=== PATIENT | female | born 1985 | race Caucasian/White ===

== ENCOUNTER 2017-02-22 11:17 | Emergency (ER) | payer OTHER, BC ==
[2017-02-22 11:30] VITALS: BP 116/58
[2017-02-22] MEDS ORDERED: Promethazine 25 MG/ML SDV IM ONE (11:56)
[2017-02-22] MEDS ORDERED: Ketorolac 30 MG/ML SDV IM ONE (11:56)
[2017-02-22] MEDS ORDERED: diphenhydrAMINE 50 MG/ML SDV IVPUSH ONE (11:58)
[2017-02-22] MEDS ORDERED: Sodium Chloride 0.9% 1,000 ML IV ONE (12:01)
--- NOTE | 2017-02-22 12:05 | EDM.PDOC ---
ED HPI GENERAL MEDICAL PROBLEM - General Chief Complaint: Headache Stated Complaint: SEVERE MIGRAINE Time Seen by Provider: 02/22/17 12:01 Source of Information: Reports: Patient - History of Present Illness INITIAL COMMENTS - FREE TEXT/NARRATIVE: 31 yo White female w/ PMHx. ( Migraine and Fibromylalgia) c/o Migraine Headache not responsive to Ibuprofen. Onset: Today Onset Date: 02/22/17 Onset Time: 08:00 Duration: Hour(s): Location: Reports: Head Quality: Reports: Ache Severity: Moderate Improves with: Reports: None Worsens with: Reports: Movement Associated Symptoms: Reports: Headaches Headache Pain Score (Numeric/FACES): 9 - Related Data Allergies Allergy/AdvReac Type Severity Reaction Status Date / Time amoxicillin Allergy UNKNOWN Verified 07/11/14 09:15 cephalexin Allergy UNKNOWN Verified 07/11/14 09:15 Sulfa (Sulfonamide Allergy UNKNOWN Verified 07/11/14 09:15 Antibiotics) Home Meds: Home Meds Amitriptyline HCl [Amitriptyline HCl] 50 mg PO BEDTIME 09/11/14 [History] Desogestrel-Ethinyl Estradiol [Apri 28 Day Tablet] 1 tab PO DAILY 09/11/14 [ History] Propranolol HCl 20 mg PO BID 09/11/14 [History] Past Medical History Cardiovascular History: Reports: Hypertension - Past Surgical History GI Surgical History: Reports: Hernia, Inguinal, Hernia Repair/Other Female Surgical History: Reports: Other (See Below) Other Female Surgeries/Procedures: repair of prolapsed uterus Social & Family History - Tobacco Use Smoking Status *Q: Never Smoker - Caffeine Use Caffeine Use: Reports: Coffee, Tea - Alcohol Use Days Per Week of Alcohol Use: 0 - Recreational Drug Use Recreational Drug Use: No - Living Situation & Occupation Living situation: Reports: , with Family Occupation: Employed ED ROS GENERAL - Review of Systems Review Of Systems: See Below Constitutional: Reports: No Symptoms HEENT: Reports: No Symptoms Respiratory: Reports: No Symptoms Cardiovascular: Reports: No Symptoms Endocrine: Reports: No Symptoms GI/Abdominal: Reports: No Symptoms : Reports: No Symptoms Musculoskeletal: Reports: No Symptoms Skin: Reports: No Symptoms Neurological: Reports: Headache Psychiatric: Reports: No Symptoms Hematologic/Lymphatic: Reports: No Symptoms Immunologic: Reports: No Symptoms - Physical Exam Exam: See Below Exam Limited By: No Limitations General Appearance: Alert, WD/WN, No Apparent Distress Eye Exam: Bilateral Eye: EOMI Ears: Normal External Exam Nose: Normal Inspection Throat/Mouth: Normal Inspection Head Exam: Atraumatic, Normocephalic Neck: Normal Inspection, Supple Respiratory/Chest: No Respiratory Distress Cardiovascular: Normal Peripheral Pulses GI/Abdominal: Normal Bowel Sounds Neuro Exam (Abbreviated): Alert, Oriented, CN II-XII Intact Back Exam: Normal Inspection Extremities: Normal Inspection, Normal Range of Motion Psychiatric: Normal Affect, Normal Mood Skin Exam: Warm Course - Vital Signs Last Recorded V/S: Last Vital Signs Temp 37.2 C 02/22/17 11:29 Pulse 76 02/22/17 11:29 Resp 16 02/22/17 11:29 BP 116/58 L 02/22/17 11:29 Pulse Ox 100 02/22/17 11:29 - Orders/Labs/Meds Meds: Medications Discontinued Medications Generic Name Dose Route Start Last Admin Trade Name Hubert PRN Reason Stop Dose Admin Diphenhydramine HCl 25 mg 02/22/17 11:58 02/22/17 12:20 Benadryl IVPUSH 02/22/17 11:59 25 mg ONETIME ONE Administration Sodium Chloride 1,000 mls @ 999 mls/hr 02/22/17 12:01 02/22/17 12:27 Normal Saline IV 02/22/17 13:01 999 mls/hr .BOLUS ONE Administration Ketorolac Tromethamine 60 mg 02/22/17 11:56 02/22/17 12:22 Toradol IM 02/22/17 11:57 60 mg ONETIME ONE Administration Promethazine HCl 12.5 mg 02/22/17 11:56 02/22/17 12:24 Phenergan IM 02/22/17 11:57 12.5 mg ONETIME ONE Administration Departure - Departure Time of Disposition: 13:14 Disposition: Home, Self-Care 01 Condition: Good Clinical Impression: Migraine - Discharge Information Instructions: Recurrent Migraine Headache, [id number] Forms: ED Department Discharge Additional Instructions: Rest Take your medication as prescribed only F/U w/ your PCP
== END 2017-02-22 13:28 | disposition home or self-care (01) ==
LOC: DL.ED 11:17
DX: G43.909 Migraine, unspecified, not intractable, without status migrainosus (principal); I10 Essential (primary) hypertension; Z98.890 Other specified postprocedural states; Z88.1 Allergy status to other antibiotic agents; Z88.2 Allergy status to sulfonamides
CPT/HCPCS: 96361; 96372; 96374; 99283; J1200; J1885; J2550; J7030

== ENCOUNTER 2020-05-25 12:08 | Emergency (ER) | payer OTHER, BC ==
[2020-05-25] MEDS ORDERED: Sodium Chloride 0.9% 1,000 ML IV ONE (13:51)
[2020-05-25] MEDS ORDERED: Ondansetron 4 MG/2 ML SDV IVPUSH ONE (13:51)
[2020-05-25] MEDS ORDERED: Ketorolac 30 MG/ML SDV IVPUSH ONE (13:51)
[2020-05-25] MEDS ORDERED: diphenhydrAMINE 50 MG/ML SDV IVPUSH ONE (13:51)
--- NOTE | 2020-05-25 13:57 | EDM.PDOC ---
<Janeth Booker - Last Filed: 05/25/20 15:34> ED HPI GENERAL MEDICAL PROBLEM - General Chief Complaint: Headache Stated Complaint: SEVERE MIGRAINE Time Seen by Provider: 05/25/20 13:40 Source of Information: Reports: Patient, RN, RN Notes Reviewed History Limitations: Reports: No Limitations - History of Present Illness INITIAL COMMENTS - FREE TEXT/NARRATIVE: 35 year old female with known history of migraines presents to ED with c/o migraine headache since yesterday. states she has taken her home regimen without any improvement. reports vomiting twice, reports photosensitivity. reports this as a typical migraine. states she gets them every 2 months or so, notes a correlation with fibromyalgia or neck pain flares. denies fever, chills, malaise, SOB, CP, or diarrhea. Onset Date: 05/24/20 - Related Data Allergies Allergy/AdvReac Type Severity Reaction Status Date / Time amoxicillin Allergy UNKNOWN Verified 07/11/14 09:15 cephalexin Allergy UNKNOWN Verified 07/11/14 09:15 Sulfa (Sulfonamide Allergy UNKNOWN Verified 07/11/14 09:15 Antibiotics) Home Meds: Home Meds Amitriptyline HCl 50 mg PO BEDTIME 09/11/14 [History] Desogestrel-Ethinyl Estradiol [Apri 28 Day Tablet] 1 tab PO DAILY 09/11/14 [History] Propranolol HCl 20 mg PO BID 09/11/14 [History] Past Medical History Cardiovascular History: Reports: Hypertension - Past Surgical History GI Surgical History: Reports: Hernia, Inguinal, Hernia Repair/Other Female Surgical History: Reports: Other (See Below) Other Female Surgeries/Procedures: repair of prolapsed uterus Social & Family History - Caffeine Use Caffeine Use: Reports: Coffee, Tea - Living Situation & Occupation Living situation: Reports: , with Family Occupation: Employed ED ROS GENERAL - Review of Systems Review Of Systems: Comprehensive ROS is negative, except as noted in HPI. - Physical Exam Exam: See Below Exam Limited By: No Limitations General Appearance: Alert, WD/WN, No Apparent Distress, Moderate Distress Eye Exam: Bilateral Eye: Other (photosensitivity) Nose: Normal Inspection Throat/Mouth: Normal Inspection, Normal Voice, No Airway Compromise Head Exam: Atraumatic, Normocephalic Neck: Normal Inspection, Full Range of Motion Respiratory/Chest: No Respiratory Distress, Lungs Clear, Normal Breath Sounds Cardiovascular: Normal Peripheral Pulses, No Murmur GI/Abdominal: Normal Bowel Sounds, Soft, Non-Tender, No Distention (Female) Exam: Deferred Rectal (Female) Exam: Deferred Neuro Exam (Abbreviated): Alert, Oriented, CN II-XII Intact, Normal Gait Back Exam: Normal Inspection, Full Range of Motion Extremities: Normal Inspection, Normal Range of Motion, Non-Tender, No Pedal Edema Psychiatric: Normal Affect, Normal Mood Skin Exam: Warm, Dry, Intact, Normal Color, No Rash Departure - Departure Time of Disposition: 15:34 Disposition: Home, Self-Care 01 Condition: Fair Clinical Impression: Migraine - Discharge Information *PRESCRIPTION DRUG MONITORING PROGRAM REVIEWED*: No *COPY OF PRESCRIPTION DRUG MONITORING REPORT IN PATIENT RASHEED: No Instructions: Migraine Headache Forms: ED Department Discharge Additional Instructions: Rest. Stay hydrated. May take tylenol PM this evening before bed. Return to ER if symptoms persist or worsen. Follow-up with your PCP. <Audrey Vazquez - Last Filed: 05/25/20 15:46> Course - Orders/Labs/Meds Meds: Medications Discontinued Medications Generic Name Dose Route Start Last Admin Trade Name Freq PRN Reason Stop Dose Admin Butorphanol Tartrate 2 mg 05/25/20 14:31 05/25/20 14:41 Stadol IVPUSH 05/25/20 14:32 2 mg ONETIME ONE Administration Diphenhydramine HCl 50 mg 05/25/20 13:51 05/25/20 14:15 Benadryl IVPUSH 05/25/20 13:52 50 mg ONETIME ONE Administration Hydromorphone HCl 1 mg 05/25/20 14:57 05/25/20 15:17 Dilaudid IVPUSH 05/25/20 14:58 1 mg ONETIME ONE Administration Sodium Chloride 1,000 mls @ 999 mls/hr 05/25/20 13:51 05/25/20 14:14 Normal Saline IV 05/25/20 14:51 999 mls/hr .BOLUS ONE Administration Ketorolac Tromethamine 30 mg 05/25/20 13:51 05/25/20 14:16 Toradol IVPUSH 05/25/20 13:52 30 mg ONETIME ONE Administration Ondansetron HCl 4 mg 05/25/20 13:51 05/25/20 14:15 Zofran IVPUSH 05/25/20 13:52 4 mg ONETIME ONE Administration - Re-Assessments/Exams Free Text/Narrative Re-Assessment/Exam: 05/25/20 14:11 I personally performed or re-performed the physical examination and medical decision making. I have verified all student documentation or findings, including history, physical exam and/or medical decision making.
[2020-05-25] MEDS ORDERED: Butorphanol 2 MG/ML SDV IVPUSH ONE (14:31)
[2020-05-25] MEDS ORDERED: HYDROmorphone 1 MG/ML Syringe IVPUSH ONE (14:57)
[2020-05-27 16:39] VITALS: BP 124/60; PULSE 70
== END 2020-05-25 15:46 | disposition home or self-care (01) ==
LOC: DL.ED 12:08
DX: G43.909 Migraine, unspecified, not intractable, without status migrainosus (principal); I10 Essential (primary) hypertension; Z88.1 Allergy status to other antibiotic agents; Z88.2 Allergy status to sulfonamides; Z79.899 Other long term (current) drug therapy
CPT/HCPCS: 96374; 96375; 99283; J0595; J1170; J1200; J1885; J2405; J7030